=== PATIENT | female | born 1945 | race Caucasian/White ===

== ENCOUNTER 2016-10-28 22:26 | Emergency (ER) | payer MEDICARE, OTHER ==
[2016-10-28] MEDS ORDERED: ACETAMINOPHEN 325 MG TABLET PO ONE (23:22)
[2016-10-28 23:40] LABS: ABSOLUTE BASOPHILS # (AUTO) 0.1 10^3/uL (0.0-0.2); ABSOLUTE EOSINOPHILS # (AUTO) 0.7 10^3/uL (0.0-0.6); ABSOLUTE LYMPHOCYTES (AUTO) 2.3 10^3/uL (0.5-4.7); ABSOLUTE MONOCYTES (AUTO) 0.7 10^3/uL (0.1-1.4); ABSOLUTE NEUT (AUTO) 5.5 10^3/uL (1.7-8.2); BASOPHILS % (AUTO) 0.7 % (0-2); EOSINOPHILS % (AUTO) 7.8 % (0-6); HEMATOCRIT 36.8 % (36.0-47.0); HEMOGLOBIN 11.7 g/dL (12.0-15.5); HGB HCT DIFFERENCE -1.7; LYMPHOCYTES % (AUTO) 24.9 % (13-45); MEAN CORPUSCULAR HEMOGLOBIN 26.7 pg (27.0-33.4); MEAN CORPUSCULAR HGB CONC 31.7 g/dL (32.0-36.0); MEAN CORPUSCULAR VOLUME 84 fl (80-97); MONOCYTES % (AUTO) 7.5 % (3-13); RED BLOOD COUNT 4.38 10^6/uL (3.72-5.28); RED CELL DISTRIBUTION WIDTH 15.4 % (11.5-14.0); SEGMENTED NEUTROPHILS % (AUTO) 59.1 % (42-78); WHITE BLOOD COUNT 9.3 10^3/uL (4.0-10.5)
[2016-10-28 23:45] LABS: ALANINE AMINOTRANSFERASE 19 U/L (9-52); ALBUMIN 3.5 g/dL (3.5-5.0); ALKALINE PHOSPHATASE 92 U/L (38-126); ANION GAP 10 (5-19); ASPARTATE AMINO TRANSFERASE 16 U/L (14-36); BILIRUBIN,DIRECT 0.2 mg/dL (0.0-0.4); BILIRUBIN,TOTAL 0.4 mg/dL (0.2-1.3); BLOOD UREA NITROGEN 23 mg/dL (7-20); CALCIUM 9.4 mg/dL (8.4-10.2); CARBON DIOXIDE 30 mmol/L (22-30); CHLORIDE 103 mmol/L (98-107); CREATININE RESULT 0.92 mg/dL (0.52-1.25); GLUCOSE 312 mg/dL (75-110); MAGNESIUM 1.7 mg/dL (1.6-2.3); POTASSIUM 4.7 mmol/L (3.6-5.0); SODIUM 143.2 mmol/L (137-145); TOTAL PROTEIN 6.5 g/dL (6.3-8.2)
[2016-10-28 23:55] LABS: CREATINE KINASE MB 0.73 ng/mL (<4.55)
[2016-10-28 23:59] LABS: TROPONIN I < 0.012 ng/mL
[2016-10-29 00:15] LABS: THYROID STIMULATING HORMONE 7.96 uIU/mL (0.47-4.68)
--- NOTE | 2016-10-29 00:28 | ER Document Report ---
ED General - General Chief Complaint: Fall Stated Complaint: ALTERED MENTAL STATUS - HPI Notes: Patient is a 71-year-old female presents to emergency department with report that her 4 days ago, and they have been undergoing proceedings which is significantly distressed her. She was started on Xanax 0.5 mg and shortly after taking the Xanax family left the house for about 20 minutes and came home to find her on the floor with a skin tear on her left arm. The patient was disoriented and was talking to relatives at the time. The patient on questioning reports some worsening of her chronic lower back pain. She initially denied any headache or neck pain, later admitted to some mild neck pain. Patient denies any chest pain or abdominal pain or difficulty breathing. She denies any intentional overdose, and the family states he only gave her one Xanax tablet. Tetanus is up-to-date. - Related Data Allergies/Adverse Reactions: No Known Allergies Allergy (Unverified 04/15/13 13:28) Past Medical History - General Information source: Patient - Social History Smoking Status: Former Smoker Smoking Education Provided: No Frequency of alcohol use: None Drug Abuse: None Lives with: Family Family History: Reviewed & Not Pertinent - Past Medical History Cardiac Medical History: Reports: Hx Hypertension - MEDICATION Denies: Hx Heart Attack Pulmonary Medical History: Reports: Hx Asthma - INHALER Neurological Medical History: Denies: Hx Cerebrovascular Accident, Hx Seizures GI Medical History: Denies: Hx Hepatitis, Hx Hiatal Hernia, Hx Ulcer Infectious Medical History: Denies: Hx Hepatitis Past Surgical History: Reports: Hx Hysterectomy. Denies: Hx Mastectomy, Hx Open Heart Surgery, Hx Pacemaker Review of Systems - Review of Systems Notes: REVIEW OF SYSTEMS: CONSTITUTIONAL : Denies fever, chills, or sweats. Denies recent illness. EENT: Denies eye, ear, throat, or mouth pain or symptoms. Denies nasal or sinus congestion or discharge. Denies throat, tongue, or mouth swelling or difficulty swallowing. CARDIOVASCULAR: Denies chest pain. Denies palpitations or racing or irregular heart beat. Denies ankle edema. RESPIRATORY: Denies cough, cold, or chest congestion. Denies shortness of breath, difficulty breathing, or wheezing. GASTROINTESTINAL: Denies abdominal pain or distention. Denies nausea, vomiting , or diarrhea. Denies blood in vomitus, stools, or per rectum. Denies black, tarry stools. Denies constipation. GENITOURINARY: Denies difficulty urinating, painful urination, burning, frequency, blood in urine, or discharge. FEMALE GENITOURINARY: Denies vaginal bleeding, heavy or abnormal periods, irregular periods. Denies vaginal discharge or odor. MUSCULOSKELETAL: Patient denies any pain to the left arm where there are skin tears. SKIN: Denies rash. HEMATOLOGIC : Denies easy bruising or bleeding. LYMPHATIC: Denies swollen, enlarged glands. NEUROLOGICAL: Denies passing out or loss of consciousness. Denies weakness or paralysis or loss of use of either side. Denies sensory loss, numbness, or tingling. Denies seizures. PSYCHIATRIC: Denies depression, suicidal ideation, or homicidal ideation. Denies intentional overdose. There has been recent significant stress as mentioned above. ALL OTHER SYSTEMS REVIEWED AND NEGATIVE. Dictation was performed using [employer] recognition software Physical Exam - Notes Notes: PHYSICAL EXAMINATION: GENERAL: Well-appearing, well-nourished and in no acute distress. HEAD: Atraumatic, normocephalic. EYES: Pupils equal round and reactive to light, extraocular movements intact, conjunctiva are normal. ENT: Nares patent, oropharynx clear without exudates. Mucous membranes somewhat dry. NECK: No lymphadenopathy. Trachea is midline. The patient has pain along C6 and C7 posteriorly. There is no bony deformity or crepitance noted. LUNGS: Breath sounds clear to auscultation bilaterally and equal. No wheezes rales or rhonchi. HEART: Regular rate and rhythm without murmurs ABDOMEN: Soft, nontender, nondistended abdomen. No guarding, no rebound. No masses appreciated. Obese. Female : deferred Musculoskeletal: Normal range of motion, no pitting or edema. No cyanosis. Patient exhibits pain to the lower lumbar spine. She states this is chronic, but may be worse since her fall. NEUROLOGICAL: Cranial nerves grossly intact. Normal sensory, motor exams. Patient is oriented 3, but she is somewhat slow to respond at times and seems somewhat disoriented about what happened earlier. PSYCH: Flat affect. SKIN: Warm, Dry, normal turgor, patient has skin tears on the left lateral arm, but no bony deformity or crepitance or evidence for infection to those locations. Course - Re-evaluation Re-evalutation: 10/29/16 02:03 Vital signs were stable. Blood sugar was somewhat elevated over 300, consistent with patient's history of diabetes. Patient became more clear and alert and appropriate. Repeat neurologic exam showed no motor or sensory abnormalities. No significant ataxia. She was alert and oriented 3. Normal reflexes. Discussed with radiology the results of the CT scan of the head. Given the presence of pneumocephaly in the left lateral ventricle, there is concern for possible basilar skull fracture versus epidural injury to the spine. X-ray of the lumbar spine was negative, and CT scan of the cervical spine was negative. There was no discernible basilar skull fracture identified, one cannot be excluded. Patient was given IV Ancef for prophylaxis. Discussion was undertaken with the patient and her family and they were in agreement with transfer to a [facility] trauma center with neurosurgical capability if the patient should need this. Discussion was undertaken with Dr. Artur Kelley at [facility] and he accepted the patient in transfer to the trauma service there. Advanced life support transport was arranged. No obvious intracranial hemorrhage or observed fracture. No significant electrolyte imbalance or renal insufficiency. There may be some mild dehydration. Most likely the patient's altered state is related to her fatigue from her passing away 4 days ago and the Xanax 0.5 mg tablet that she took for the first time. Critical care time not counting billable procedures is 46 minutes. 10/29/16 02:04 - Laboratory Result Diagrams: 10/28/16 22:33 10/28/16 22:33 Laboratory results interpreted by me: 10/28/16 10/28/16 10/28/16 22:33 22:33 22:33 Hgb 11.7 L MCH 26.7 L MCHC 31.7 L RDW 15.4 H Eosinophils % 7.8 H Absolute Eosinophils 0.7 H BUN 23 H Glucose 312 H TSH 7.96 H - Diagnostic Test Radiology reviewed: Image reviewed, Reports reviewed - EKG Interpretation by Me Rate: Normal Additional EKG results interpreted by me: 10/29/16 00:29 EKG as interpreted by me showed normal sinus rhythm of 78. There is a right bundle branch block. There is no gross evidence for acute OH or ischemia identified. Discharge - Discharge Clinical Impression: Pneumocephalus, traumatic, Hyperglycemia Accidental fall Qualifiers: Encounter type: initial encounter Qualified Code(s): W19.XXXA - Unspecified fall, initial encounter Neck strain Qualifiers: Encounter type: initial encounter Qualified Code(s): S16.1XXA - Strain of muscle, fascia and tendon at neck level, initial encounter Back strain Qualifiers: Encounter type: initial encounter Qualified Code(s): S39.012A - Strain of muscle, fascia and tendon of lower back, initial encounter Skin tear of elbow without complication Qualifiers: Encounter type: initial encounter Laterality: left Qualified Code(s): S51.012A - Laceration without foreign body of left elbow, initial encounter Condition: Stable Disposition: TERTIARY Referrals: MELANIE LORENZO MD [Primary Care Provider] - Follow up as needed
[2016-10-29] MEDS ORDERED: CEFAZOLIN INJ 1 GM VIAL IV ONE (00:42)
[2016-10-29 01:40] LABS: PROTHROMBIN TIME 12.1 SEC (11.4-15.4)
[2016-10-29 02:35] LABS: APPEARANCE,URINE SLIGHTLY-CLOUDY; BILIRUBIN,URINE NEGATIVE (NEGATIVE); GLUCOSE, URINE >=500 mg/dL (NEGATIVE); KETONES,URINE NEGATIVE (NEGATIVE); LEUKOCYTE ESTERASE,URINE MODERATE (NEGATIVE); NITRITE,URINE POSITIVE (NEGATIVE); PROTEIN,URINE NEGATIVE (NEGATIVE); URINE SPECIFIC GRAVITY 1.018; UROBILINOGEN,URINE NEGATIVE mg/dL (<2.0)
[2016-10-29 03:36] VITALS: BP 148/57
== END 2016-10-29 03:37 | disposition short-term general hospital (02) ==
LOC: ER 22:26
DX: S16.1XXA Strain of muscle, fascia and tendon at neck level, initial encounter (principal); S39.012A Strain of muscle, fascia and tendon of lower back, initial encounter; S51.012A Laceration without foreign body of left elbow, initial encounter; R41.82 Altered mental status, unspecified; R51 Headache; Z87.891 Personal history of nicotine dependence; M54.5 Low back pain; G89.29 Other chronic pain; M54.2 Cervicalgia; W19.XXXA Unspecified fall, initial encounter
CPT/HCPCS: 99285; 96365; 36415; 84439; 82553; 83735; 84443; 85025; 85610; 80053; 81001; 84484; 71010; 72110; 70450; 72125; A9270; J0690

== ENCOUNTER → 2016-12-10 | Outpatient (CLI) | payer MEDICARE | LOC: WI 08:04 | PROVIDERS: ATTEND Family Medicine | DX: M85.88 Other specified disorders of bone density and structure, other site (principal) | CPT/HCPCS: 77080 ==